=== PATIENT | male | born 1995 | race Hispanic/Latino ===

== ENCOUNTER 2018-11-14 14:08 | Emergency (ER) | payer BC, OTHER ==
[2018-11-14 14:20] VITALS: RESP 18; TEMP 98.7; O2SAT 97
[2018-11-14] MEDS ORDERED: Sodium Chloride 0.9% 1,000 ML IV STA (14:44)
--- NOTE | 2018-11-14 14:52 | ED PDOC ---
HPI: Headache Time Seen by Provider: 11/14/18 14:37 Chief Complaint (Nursing): Chest Pain Chief Complaint (Provider): Migraines History Per: Patient History/Exam Limitations: no limitations Onset/Duration Of Symptoms: Days (2-3) Current Symptoms Are (Timing): Still Present Additional Complaint(s): 23 year old male presents to the ED complaining of migraines for 2 to 3 days associated with chest pressure and dizziness with nausea. Patient states he had a fall about 1 month ago after a night of heavy drinking and since then, he has had intermittent headache with dizziness. Patient admits to binge drinking again last night. Denies trauma. This morning, he felt a worsening headache and nausea inconsistent with prior hangovers. He states he smokes marijuana and recently has been attempting to quit cigarettes. Patient is now down to 1 cigarette daily from a pack and a half 3 weeks ago. PMD: none Past Medical History Reviewed: Historical Data, Nursing Documentation, Vital Signs Vital Signs: Last Vital Signs Temp 98.7 F 11/14/18 14:19 Pulse 69 11/14/18 14:19 Resp 18 11/14/18 14:19 BP 121/69 11/14/18 14:19 Pulse Ox 97 11/14/18 14:19 - Medical History PMH: No Chronic Diseases - Surgical History Surgical History: No Surg Hx - Family History Family History: States: Unknown Family Hx - Social History Current smoker - smoking cessation education provided: Yes Alcohol: Other (binge drinking occassionally) Drugs: Cannabis - Allergies Allergies/Adverse Reactions: Allergies Allergy/AdvReac Type Severity Reaction Status Date / Time No Known Allergies Allergy Verified 11/14/18 14:44 Review of Systems ROS Statement: Except As Marked, All Systems Reviewed And Found Negative Cardiovascular: Positive for: Chest Pain Gastrointestinal: Positive for: Nausea Neurological: Positive for: Headache, Dizziness Psych: Negative for: Anxiety, Suicidal ideation Physical Exam - Reviewed Nursing Documentation Reviewed: Yes Vital Signs Reviewed: Yes - Physical Exam Appears: Positive for: Non-toxic, No Acute Distress Head Exam: Positive for: ATRAUMATIC, NORMOCEPHALIC Skin: Positive for: Normal Color, Warm, Dry Eye Exam: Positive for: Normal appearance Neck: Positive for: Normal, Painless ROM Cardiovascular/Chest: Positive for: Regular Rate, Rhythm Respiratory: Positive for: Normal Breath Sounds. Negative for: Wheezing, Respiratory Distress Gastrointestinal/Abdominal: Positive for: Normal Exam, Soft. Negative for: Tenderness Extremity: Positive for: Normal ROM Neurologic/Psych: Positive for: Alert, Oriented. Negative for: Motor/Sensory Deficits - ECG ECG Rhythm: Positive for: Sinus Rhythm, Nonspecific Changes (nonspecific ST changes) Interpretation Of ECG: Normal intervals Rate: 71 O2 Sat by Pulse Oximetry: 97 (RA) Pulse Ox Interpretation: Normal Medical Decision Making Medical Decision Making: Initial Impression: chest pain, migraine, alcohol abuse Initial Plan: --Chest X-ray --CT Head --Bloodwork --Toradol 30mg IV --Zofran 4mg IV Patient endorsed to Dr. Galvan Scribe Attestation: Documented by Bear Gordon acting as a scribe for Steven Bailey III, DO. Provider Scribe Attestation: All medical record entries made by the Scribe were at my direction and personally dictated by me. I have reviewed the chart and agree that the record accurately reflects my personal performance of the history, physical exam, medical decision making, and the department course for this patient. I have also personally directed, reviewed, and agree with the discharge instructions and disposition. Disposition - Clinical Impression Clinical Impression: Headache, Chest pain, Alcohol use disorder, Nicotine withdrawal - Patient ED Disposition Is Patient to be Admitted: No Counseled Patient/Family Regarding: Studies Performed - Disposition Disposition: Transfer of Care Disposition Time: 15:11 Condition: STABLE Forms: [employer] ([place]ian) Patient Signed Over To: Chance Galvan Handoff Comments: pending ct, cxr, labs, re-eval/
--- NOTE | 2018-11-14 15:32 | ED PDOC ---
- Laboratory Results Result Diagrams: 11/14/18 15:27 11/14/18 15:27 - ECG O2 Sat by Pulse Oximetry: 97 (RA) Medical Decision Making Medical Decision Making: Time: 1500 -Patient endorsed to provider by Dr. Bailey pending labs and CT results. Scribe Attestation: Documented by Rajwinder Trinh, acting as a scribe for Dr. Chance Galvan . Provider Scribe Attestation: All medical record entries made by the Scribe were at my direction and personally dictated by me. I have reviewed the chart and agree that the record accurately reflects my personal performance of the history, physical exam, medical decision making, and the department course for this patient. I have also personally directed, reviewed, and agree with the discharge instructions and disposition. Disposition - Clinical Impression Clinical Impression: Headache, Chest pain, Alcohol use disorder, Nicotine withdrawal - POA Present On Arrival: None - Disposition Referrals: [facility] [Outside] Disposition: Routine/Home Disposition Time: 16:37 Condition: FAIR Prescriptions: Nicotine 14 mg/24 hr [Nicoderm CQ] 1 each TD DAILY #10 patch Instructions: Effects of Alcohol on Your Health, Quitting Smoking for Teens and Young Adults Forms: [employer] (I[place]ic)
[2018-11-14 15:33] LABS: BASO # 0.1 K/uL (0.0-0.2); BASO % 1.1 % (0.0-2.0); EOS # 0.1 K/uL (0.0-0.7); EOS % 1.2 % (0.0-4.0); LYMPH # 2.3 K/uL (1.0-4.3); LYMPH % 31.4 % (20.0-40.0); MEAN CELL VOLUME 88.8 fl (80.0-94.0); MEAN CORPUSCULAR HEMOGLOBIN 29.5 pg (27.0-31.0); MEAN CORPUSCULAR HGB CONC 33.2 g/dL (33.0-37.0); MEAN PLATELET VOLUME 6.9 fl (7.2-11.7); MONO # 0.6 K/uL (0.0-0.8); MONO % 8.2 % (0.0-10.0); NEUT # 4.3 K/uL (1.8-7.0); NEUT % 58.1 % (50.0-75.0); NRBC % 0.4 % (0.0-0.0); RBC 4.42 Mil/uL (4.40-5.90); RED CELL DISTRIBUTION WIDTH 13.3 % (11.5-14.5); WHITE BLOOD COUNT 7.4 K/uL (4.8-10.8)
--- NOTE | 2018-11-14 15:47 | CT ---
Date of service: 11/14/2018 PROCEDURE: CT HEAD WITHOUT CONTRAST. HISTORY: r/o ICH COMPARISON: None available. TECHNIQUE: Axial computed tomography images were obtained through the head/brain without intravenous contrast. Supplemental Coronal and Sagittal projections created and reviewed. Radiation dose: Total exam DLP = 778.43 mGy-cm. This CT exam was performed using one or more of the following dose reduction techniques: Automated exposure control, adjustment of the mA and/or kV according to patient size, and/or use of iterative reconstruction technique. FINDINGS: HEMORRHAGE: No intracranial hemorrhage. BRAIN: No mass effect or edema. No atrophy or chronic microvascular ischemic changes. VENTRICLES: Unremarkable. No hydrocephalus. CALVARIUM: Unremarkable. PARANASAL SINUSES: Unremarkable as visualized. No significant inflammatory changes. MASTOID AIR CELLS: Unremarkable as visualized. No inflammatory changes. OTHER FINDINGS: None. IMPRESSION: No acute intracranial abnormalities. No significant findings to account for the clinical presentation.
--- NOTE | 2018-11-14 15:49 | RAD ---
Date of service: 11/14/2018 HISTORY: chest pain COMPARISON: No prior. TECHNIQUE: Chest PA and lateral FINDINGS: LUNGS: No active pulmonary disease. PLEURA: No significant pleural effusion identified. No pneumothorax apparent. CARDIOVASCULAR: No aortic atherosclerotic calcification present. Normal cardiac size. No pulmonary vascular congestion. OSSEOUS STRUCTURES: No significant abnormalities. VISUALIZED UPPER ABDOMEN: Normal. OTHER FINDINGS: None. IMPRESSION: No acute cardiopulmonary disease appreciated.
[2018-11-14 15:50] LABS: ALB/GLOB RATIO 1.7 (1.0-2.1); ALBUMIN 4.6 g/dL (3.5-5.0); ALT/SGPT 20 U/L (21-72); AST/SGOT 24 U/L (17-59); BLOOD UREA NITROGEN 19 mg/dl (9-20); CALCIUM 9.5 mg/dL (8.4-10.2); GFR NON-AFRICAN AMERICAN > 60; LIPASE 64 U/L (23-300)
[2018-11-14 17:35] VITALS: BP 124/70; PULSE 74
--- NOTE | 2018-11-15 15:07 | CARD ---
APPROVED REPORT Date of service: 11/14/2018 EKG Measurement Heart [id number] <Conclusion> Normal sinus rhythm Normal Electrocardiogram
== END 2018-11-14 16:51 | disposition home or self-care (01) ==
LOC: H.ER 14:08
DX: F10.10 Alcohol abuse, uncomplicated (principal); R51 Headache; R07.89 Other chest pain; F12.90 Cannabis use, unspecified, uncomplicated; F17.200 Nicotine dependence, unspecified, uncomplicated
CPT/HCPCS: 70450; 71046; 80053; 83690; 84484; 85025; 93005; 96374; 96375; 99285; G0480; J1885; J2405; J7030